=== PATIENT | female | born 1955 | race Caucasian/White ===

== ENCOUNTER 2016-12-01 07:14 | Day surgery (SDC) | payer OTHER, MEDICARE ==
[~2016-12-01] VITALS: Ht 165.1 cm; Wt 102.5 kg
[2016-12-01] VITALS (13 sets, daily range): BP systolic 108–156; BP diastolic 60–100; PULSE 67–86; TEMP 36.7–36.8; O2SAT 94–100; Ht 165.1 cm; Wt 102.5 kg
[2016-12-01] MEDS ORDERED: FENTANYL CITRATE INJ 50 MCG/1 ML 2 ML VIAL IV ONE ×2 (07:15→10:00)
[2016-12-01] MEDS ORDERED: MIDAZOLAM HCL 5 MG/ML 1 ML VIAL IV ONE ×2 (07:15→10:00)
[2016-12-01] MEDS ORDERED: LIDOCAINE 4% INH SOLN 4 ML BTL ONE (07:15)
[2016-12-01] MEDS ORDERED: LIDOCAINE HCL 2% LOCAL 50ML VIAL INFIL ONE (07:15)
[2016-12-01] MEDS ORDERED: OXAP600T PO (08:06)
[2016-12-01] MEDS ORDERED: OMEG10007 PO (08:07)
[2016-12-01] MEDS ORDERED: MULT-506 PO (08:07)
[2016-12-01] MEDS ORDERED: MISCCAP80 (08:07)
[2016-12-01] MEDS ORDERED: MULT-190 PO (08:07)
[2016-12-01] MEDS ORDERED: LEVA45AE (08:07)
[2016-12-01] MEDS ORDERED: CHOL2000 PO (08:07)
[2016-12-01] MEDS ORDERED: ATRINS NEB (08:07)
[2016-12-01] MEDS ORDERED: ATOR10TA82 PO (08:07)
[2016-12-01] MEDS ORDERED: CITA10TA4 PO (08:07)
[2016-12-01] MEDS ORDERED: LORA-741 PO (08:07)
[2016-12-01] MEDS ORDERED: cartia xt (08:07)
[2016-12-01] MEDS ORDERED: OXGN (08:11)
--- NOTE | 2016-12-01 08:54 | History & Physical Bridge Note ---
H&P Re-Evaluation Bridge Note: I have examined the patient, reviewed the History & Physical and in the interval since the performance of the History & Physical I have noted the following changes of clinical significance: No changes noted
--- NOTE | 2016-12-01 08:55 | Procedure Note ---
Pre-Mod Sedation Assessment General Date of Moderate Sedation: Dec 01, 2016. Vital Signs: Vital Signs Past 12 Hours Date Time Temp Pulse Resp B/P Pulse Ox O2 Delivery O2 Flow Rate FiO2 12/01/16 08:09 36.8 83 20 156/86 97 Room Air Review Cardiovascular: regular rate, rhythm, no edema, no gallop, no JVD, no murmur, normal peripheral pulses Abdomen: normal bowel sounds, non tender, soft, no organomegaly, no pulsatile mass, normal rectal exam, occult blood negative Lungs: chest non-tender, lungs clear, normal breath sounds, no respiratory distress, no accessory muscle use Airway Class: II Pre-Sedation Airway Assessment Oral Cavity: Capped Teeth, WNL Able to Visualize Vocal Cords: Yes Short Thick Neck: Yes Hx of Sleep Apnea: No Smoking Status: Never Smoker Mallampati Classification: Class II ASA Classification: Class II Procedure Planning Contraindications-for Mod Sed: None Yes Notes The planned sedation has been discussed with the patient and consent obtained. I have identified the patient, determined the appropriateness of sedation and have assessed the patient immediately prior to the procedure. All medicine(s) and interventions are by my order.
--- NOTE | 2016-12-01 09:36 | Procedure Note ---
Post-Moderate Sedation Plan General Date of Moderate Sedation Dec 01, 2016. Vital Signs: Vital Signs Past 12 Hours Date Time Temp Pulse Resp B/P Pulse Ox O2 Delivery O2 Flow Rate FiO2 12/01/16 09:30 81 24 138/83 100 Mask 5.0 12/01/16 09:25 86 24 153/90 100 Mask 5.0 12/01/16 09:20 77 18 135/70 100 Mask 5.0 12/01/16 09:15 73 18 153/100 100 Mask 5.0 12/01/16 09:10 73 18 144/91 95 Room Air 12/01/16 08:09 36.8 83 20 156/86 97 Room Air Review - Discharge Plan Post Moderate Sedation Plan: On clinical assessment, the patient appears to have tolerated the conscious sedation without complications. Patient is recovering as anticipated. Patient will continue to be monitored by nursing and may be discharged when conscious sedation discharge criteria are met.
--- NOTE | 2016-12-01 09:39 | Discharge Instructions ---
Discharge Instructions Date of Service Dec 01, 2016. Admission Reason for Admission: Cough, Abnormal Finding On Imaging, Sob Discharge Discharge Diagnosis / Problem: chronic cough with bilateral lower lobe atelectasis Discharge Goals Goal(s): Diagnostic testing Activity Recommendations Activity Limitations: resume your previous activity . Instructions / Follow-Up Instructions / Follow-Up Follow-up with provider Sarmad Nur of the pulmonary clinic Current Hospital Diet Patient's current hospital diet: Discharge Diet Recommended Diet: Regular Diet Procedures Procedures Performed: Bronchoscopy, bronchial alveolar lavage, conscious sedation Pending Studies Studies pending at discharge: yes List of pending studies: Microbiologic, fungal and viral as well as cytologic evaluation of the bronchial lavage pending Medical Emergencies . Who to Call and When: Medical Emergencies: If at any time you feel your situation is an emergency, please call 911 immediately. . Non-Emergent Contact Non-Emergency issues call your: Colon Therapist Call Non-Emergent contact if: temperature is above 101.5 . . "Provider Documentation" section prepared by Reymundo Castillo. VTE Core Measure Inpt VTE Proph given/why not?: Treatment not indicated
--- NOTE | 2016-12-01 09:44 | Bronchoscopy Procedure Note ---
Bronchoscopy Procedure Note Procedure: Bronchoscopy, conscious sedation, bronchial alveolar lavage the right lower lobe Consent: Obtained to the patient placed in the chart Preprocedural diagnosis: Chronic atelectasis Postprocedural diagnosis: Chronic atelectasis Start Time: 918 Finish time: 928 Total time: 10 minutes Analgesia: 2% liquid lidocaine: Via nebulizer 4% gel lidocaine: Via right naris 2% liquid lidocaine: Via bronchoscopy Sedation: Versed IV: 2 mg Fentanyl IV: 50 g Procedure: The [employer] video bronchoscope was used for this procedure passed out through the patient right naris. Right naris/posterior naris/posterior oropharynx: Anatomically within normal limits Glottis: Anatomically within normal limits Vocal cords: Proper abduction and abduction Subglottis/trachea/Usha: Anatomically within normal limits Right bronchial tree: Right mainstem: Anatomically within normal limits Right upper lobe: Anatomically within normal limits Bronchus intermedius: Anatomically within normal limits Right middle lobe: Anatomically within normal limits Right lower lobe: Anatomically within normal limits Left bronchial tree: Left mainstem bronchus: Anatomically within normal limits Left upper lobe: Anatomically within normal limits Lingula: Anatomically within normal limits Left lower lobe: Anatomically within normal limits Bronchial lavage: Approximately 100 cc of normal saline was used for bronchial lavage of the right lower lobe and approximately 80 cc return. Follow-up: Patient will follow-up with provider Sarmad Nur Complications: None
[2016-12-01] MEDS ORDERED: NURSING VERBAL MED ORDER ONE (09:45)
[2016-12-26 19:38] LABS: HERPES SIMPLEX CULT SOURCE OTHER-BAL/RLL; HERPES SIMPLEX VIRUS CULT NOT ISOLATED (NOT ISOLATED)
== END 2016-12-01 11:55 | disposition home or self-care (01) ==
LOC: C.ACU 07:14
PROVIDERS: ATTEND Internal Medicine Critical Care Medicine
DX: J98.11 Atelectasis (principal); R91.8 Other nonspecific abnormal finding of lung field; G47.19 Other hypersomnia; J39.8 Other specified diseases of upper respiratory tract; E78.00 Pure hypercholesterolemia, unspecified; I10 Essential (primary) hypertension; H35.30 Unspecified macular degeneration; Z83.511 Family history of glaucoma; Z80.49 Family history of malignant neoplasm of other genital organs; Z83.3 Family history of diabetes mellitus; Z99.81 Dependence on supplemental oxygen; Z82.49 Family history of ischemic heart disease and other diseases of the circulatory system